=== PATIENT | male | born 1985 | race Caucasian/White ===

== ENCOUNTER 2024-09-02 20:45 | Inpatient (IN) | payer MEDICAID, SELFPAY ==
[2024-09-02] VITALS (17 sets, daily range): BP systolic 111–177; BP diastolic 69–100; PULSE 44–115; RESP 18; TEMP 37.1; O2SAT 94–100
--- NOTE | 2024-09-02 21:00 | DI.RAD_ITS ---
Exam(s) XR TIB/FIB LT EXAM: XR TIB/FIB LT CLINICAL HISTORY: soft tissue infection. TECHNIQUE: 2D digital imaging was performed. Two views. COMPARISON: No exams were available for comparison FINDINGS: BONES: No acute fracture is present. No bony destructive lesion is seen. Visualized portion of knee and ankle joints are unremarkable. SOFT TISSUE: Lower leg edema. No foreign body or gas collection. IMPRESSION: Soft tissue swelling. The preliminary [facility] report was reviewed. DATA REPOSITORY: RADIATION DOSE DELIVERED:
[2024-09-02] MEDS: cefTRIAXone 1 GM/50 ML BAG IVPB (21:54)
[2024-09-02 21:55] LABS: Abs Immature Grans 0.02 10^3/uL (0.0-0.06); HCT 35.8 % (40.0-50.0); HGB 11.8 g/dL (13.5-17.5); Immature Grans % 0.5 %; MCH 29.6 pg (27.0-33.0); MCHC 33.0 % (32.0-36.0); MCV 90 fL (80-95); MPV 9.2 fL (8.0-11.0); Platelet Count 245 10^3/uL (130-400); RBC 3.98 10^6/uL (4.36-5.78); RDW 12.7 % (11.8-14.1); RDW-SD 41.9 fL; WBC 4.15 10^3/uL (4.4-10.8)
[2024-09-02 21:59] LABS: ESR 16 mm/hr (0-15)
[2024-09-02 22:09] LABS: ALT 24 U/L (16-63); AST 21 U/L (15-37); Albumin 3.7 g/dL (3.4-5.0); Alkaline Phosphatase 91 U/L (46-116); Anion Gap 8.5 mmol/L (3-11); BUN 14 mg/dL (7-18); Bilirubin, Total 0.2 mg/dL (0.2-1.0); C-Reactive Protein 3.86 mg/dL (<or=0.5); CO2 30.5 mmol/L (21.0-32.0); Calcium 8.8 mg/dL (8.5-10.1); Chloride 105 mmol/L (98-107); Creatine Kinase 240 U/L (39-308); Estimated GFR 119.46 (mL/min/1.73m2); Glucose 91 mg/dL (74-106); Potassium 3.4 mmol/L (3.5-5.1); Sodium 144 mmol/L (136-145); Total Protein 7.3 g/dL (6.4-8.2)
[2024-09-02 22:12] LABS: INR 1.0 (0.9-1.1); Prothrombin Time 10.5 sec (9.1-11.1)
[2024-09-02] MEDS: ACETAMINOPHEN 1,000 MG/100 ML BAG 400 MG IVPB (22:25)
--- NOTE | 2024-09-02 22:36 | W.PM.HP.N ---
Date of service: 09/02/24 Time of Service: 22:36 Assessment and Plan Assessment and plan (1) Cellulitis of left leg: Status: Acute Assessment and plan: -likely secondary to bug bite ~ 5 days ago -subjective fever at home, but does not meet sepsis criteria -LLE xray without gas -given severity of cellulitis, was started on vanc and CTX, will continue History of Present Illness History of Present Illness Chief Complaint: LLE infection Narrative: 38-year-old male this emergency department with concerns for infection of his left lower extremity. 5 days ago patient was hiking had a bug bite on his left lower extremity, but 3 days ago noted at the beginning of blood was significant rapid redness and swelling of that area. Denies any fevers, headaches, dizziness, nausea vomiting or diarrhea. In the emergency department patient was noted to have minimal vital signs, physical exam concerning for left lower extremity cellulitis around the lateral malleolus and extending up the lateral aspect. Chest x-ray was without findings concerning for necrotizing fasciitis and CBC and CMP were unremarkable. On the emergency department the patient started vancomycin and ceftriaxone emergency room physician for fossils. However patient with severe cellulitis. Review of Systems All systems reviewed & are unremarkable except as noted in HPI and below PFSH All Active Problems (Updated 09/02/24 @ 23:08 by Kary Marie MD) Cellulitis of left leg (Acute) Social History Smoking/Tobacco Use Status: Former Tobacco Use Smoking risk assessment performed?: Yes Alcohol Intake: current Alcohol Intake frequency: a few times a month Alcohol type: beer Drug use: Never Substance use type: does not use Housing: other Do you feel safe in your relationship?: Yes Meds Allergies and Home Medications Allergies Allergy/AdvReac Type Severity Reaction Status Date / Time No Known Allergies Allergy Unverified 09/02/24 21:57 Home Medications ?Medication ?Instructions ?Recorded ?Confirmed ?Type ibuprofen 800 mg tablet 800 mg PO TID #30 tabs 08/06/12 09/02/24 Rx tramadol 50 mg tablet 50 mg PO TID #10 tabs 08/06/12 09/02/24 Rx alprazolam 2 mg tablet 2 mg PO DAILY 12/16/15 09/02/24 History methylphenidate HCl 36 mg 36 mg PO DAILY 12/16/15 09/02/24 History tablet,extended release 24 hr omeprazole 20 mg capsule,delayed 20 mg PO DAILY 12/16/15 09/02/24 History release tramadol 50 mg tablet 50 mg PO TID PRN #20 tabs 12/16/15 09/02/24 Rx ibuprofen 600 mg tablet 600 mg PO Q6H PRN Pain ##15 03/28/17 09/02/24 Rx trazodone 100 mg tablet 100 mg PO HS 03/28/17 09/02/24 History clonidine HCl 0.1 mg tablet 0.1 mg PO TID 09/02/24 09/02/24 History Results Labs 09/02/24 21:48 09/02/24 21:48 Labs: Laboratory Results - last 24 hr 09/02/24 21:48 WBC 4.15 L RBC 3.98 L Hgb 11.8 L Hct 35.8 L MCV 90 MCH 29.6 MCHC 33.0 RDW 12.7 Plt Count 245 MPV 9.2 Immature Gran % 0.5 Neutrophils % 63.8 Lymphocytes % 22.2 Monocytes % 12.0 Eosinophils % 1.0 Basophils % 0.5 Nucleated RBC % 0.0 Absolute Neutrophils 2.65 Absolute Lymphocytes 0.92 L Absolute Monocytes 0.50 Absolute Eosinophils 0.04 Absolute Basophils 0.02 ESR 16 H PT 10.5 INR 1.0 Sodium 144 Potassium 3.4 L Chloride 105 Carbon Dioxide 30.5 Anion Gap 8.5 BUN 14 Creatinine 0.7 Est GFR (CKD-EPI 2020) 119.46 Glucose 91 Calcium 8.8 Total Bilirubin 0.2 AST 21 ALT 24 Alkaline Phosphatase 91 Creatine Kinase 240 C-Reactive Protein 3.86 H Total Protein 7.3 Albumin 3.7 Last Vital Signs Temp 98.8 F 09/02/24 20:55 Pulse 115 H 09/02/24 20:55 Resp 18 09/02/24 20:55 BP 177/100 H 09/02/24 20:55 Pulse Ox 100 09/02/24 20:55 PAWSS Have you Been Recently Intoxicated or Drunk Within the Last 30 days?: No Have you Ever Experienced Previous Episodes of Alcohol Withdrawal?: No Have you ever Experienced Withdrawal Seizures?: No Have you ever Experienced Delirium Tremens(DT)s?: No Have you ever undergone Alcohol Rehabilitation Treatment (i.e, inpt ot outpatient treatment programs)?: No Have you ever Experienced Blackouts?: No Have you ever Combined Alcohol with other Downers within the last 90 days?: No Have you ever Combined Alcohol with any other Substance of Abuse during the last 90 days?: No Positive Blood Alcohol level on Presentation? [PCS.BAL]: No Evidence of Increased Autonomic Activity (i.e. HR>120, tremor, sweating, agitation, nausea)?: No Result: 0 Time Spent Time spent with Patient: >75 minutes Time was spent: preparing to see the patient(eg.review tests), obtaining and/or reviewing separately otained hiistory, ordering medications,tests, procedures, referring, communicating with other health childcare worker, indepentently interpreting results, counseling the patient and care coordination
--- NOTE | 2024-09-02 22:56 | DI.[facility]_ITS ---
PROCEDURE INFORMATION: Exam: XR Left Tibia and Fibula Exam date and time: 09/02/2024 9:39 PM Age: 38 years old Clinical indication: Other: Soft tissue infection TECHNIQUE: Imaging protocol: Radiologic exam of the left tibia and fibula. Views: 2 views. COMPARISON: No relevant prior studies available. FINDINGS: Bones/joints: Osseous alignment is normal. No acute fracture. No significant arthritic change. No findings concerning for osteomyelitis. Soft tissues: Diffuse soft tissue swelling of the left lower leg and ankle. No radiodense foreign body. IMPRESSION: No osseous abnormality. Diffuse soft tissue swelling Dictated and Authenticated by: Jack Chicas MD. Orderin Frank Goldberg MD
--- NOTE | 2024-09-02 23:03 | W.ED.GENAD ---
Discharge Plan Disposition Patient Disposition: Admit to [facility] Condition: Fair Discharge Details Clinical Impression: Cellulitis of left leg Primary Care Provider: None,None ED Provider: Kary Marie Home Meds and New Rx's Prescriptions: No Action tramadol 50 MG tablet 50 mg PO TID Qty: 10 0RF ibuprofen 800 MG tablet 800 mg PO TID Qty: 30 0RF omeprazole 20 MG capsule,delayed release(DR/EC) 20 mg PO DAILY alprazolam 2 MG tablet 2 mg PO DAILY methylphenidate HCl 36 MG tablet extended release 24hr 36 mg PO DAILY tramadol 50 MG tablet 50 mg PO TID PRNQty: 20 0RF trazodone 100 MG tablet 100 mg PO HS ibuprofen 600 MG tablet 600 mg PO Q6H PRN (Reason: Pain) Qty: 15 0RF clonidine HCl 0.1 mg tablet 0.1 mg PO TID HPI General Date/Time Provider Initiated Documentation: 09/02/24 20:55. Limitations to Documentation: no limitations. Information obtained by: patient. HPI Narrative: 38-year-old gentleman with past medical history of anxiety and sarcoidosis of lungs presents for evaluation of left leg swelling and pain. Patient reports that about 5 days he was walking through a field with high grass and afterwards he noticed that he had several bug bites on both of his legs. He reports that it was pretty itchy. He states that about 2 days later, he noted that he developed significant swelling of his left lower leg and redness. He has been observing this red area grow. He has been having subjective fevers. He has been having more significant swelling and pain in the left lower leg. He reports that it hurts to walk. He has not noted any drainage from the area. Related Data Home Medications ?Medication ?Instructions ?Recorded ?Confirmed ibuprofen 800 mg tablet 800 mg PO TID #30 tabs 08/06/12 09/02/24 tramadol 50 mg tablet 50 mg PO TID #10 tabs 08/06/12 09/02/24 alprazolam 2 mg tablet 2 mg PO DAILY 12/16/15 09/02/24 methylphenidate HCl 36 mg 36 mg PO DAILY 12/16/15 09/02/24 tablet,extended release 24 hr omeprazole 20 mg capsule,delayed 20 mg PO DAILY 12/16/15 09/02/24 release tramadol 50 mg tablet 50 mg PO TID PRN #20 tabs 12/16/15 09/02/24 ibuprofen 600 mg tablet 600 mg PO Q6H PRN Pain ##15 03/28/17 09/02/24 trazodone 100 mg tablet 100 mg PO HS 03/28/17 09/02/24 clonidine HCl 0.1 mg tablet 0.1 mg PO TID 09/02/24 09/02/24 Previous Rx's ?Medication ?Instructions ?Recorded ibuprofen 800 mg tablet 800 mg PO TID #30 tabs 08/06/12 tramadol 50 mg tablet 50 mg PO TID #10 tabs 08/06/12 tramadol 50 mg tablet 50 mg PO TID PRN #20 tabs 12/16/15 ibuprofen 600 mg tablet 600 mg PO Q6H PRN Pain ##15 03/28/17 Allergies Allergy/AdvReac Type Severity Reaction Status Date / Time No Known Allergies Allergy Unverified 09/02/24 21:57 General Stated Complaint: Cellulitis MARIBEL: 3 Exam Narrative Exam Narrative: Review of Systems: All systems reviewed & are unremarkable except as noted in HPI and below Well-developed, no acute distress afebrile NCAT RR no murmurR, Unlabored respiratory effort clear bilaterally Nondistended abdomen Bilateral lower extremities with slight edema, left more significant than right, there is a large area of erythema on the lateral left calf extending down to the ankle, there are multiple small bites noted on bilateral lower extremities, no erythema migrans appreciated, no urticarial lesions, no crepitus appreciated in the left lower extremity Course Vital Signs Vital signs: Vital Signs Temperature 37.1 C 09/02/24 20:49 Pulse 115 H 09/02/24 20:49 Respiratory Rate 18 09/02/24 20:49 Blood Pressure 177/100 H 09/02/24 20:49 Pulse Oximetry 97 09/02/24 20:49 Temperature 37.1 C 09/02/24 20:55 Temperature Source Temporal Artery Scan 09/02/24 20:55 Pulse 115 H 09/02/24 20:55 Respiratory Rate 18 09/02/24 20:55 Blood Pressure 177/100 H 09/02/24 20:55 Blood Pressure Position Sitting 09/02/24 20:55 Pulse Oximetry 100 09/02/24 20:55 Oxygen Delivery Method Room Air 09/02/24 20:55 Pain Level 10 09/02/24 20:49 Lab/Test Results Lab/Test Results: Laboratory Tests Range/Units 09/02/24 21:48 WBC (4.4-10.8) 10^3/uL 4.15 L RBC (4.36-5.78) 10^6/uL 3.98 L Hgb (13.5-17.5) g/dL 11.8 L Hct (40.0-50.0) % 35.8 L MCV (80-95) fL 90 MCH (27.0-33.0) pg 29.6 MCHC (32.0-36.0) % 33.0 RDW (11.8-14.1) % 12.7 Plt Count (130-400) 10^3/uL 245 MPV (8.0-11.0) fL 9.2 Immature Gran % % 0.5 Neutrophils % % 63.8 Lymphocytes % % 22.2 Monocytes % % 12.0 Eosinophils % % 1.0 Basophils % % 0.5 Nucleated RBC % (0.0-0.3) % 0.0 Absolute Neutrophils (1.2-6.7) 10^3/uL 2.65 Absolute Lymphocytes (1.2-3.4) 10^3/uL 0.92 L Absolute Monocytes (0.1-0.8) 10^3/uL 0.50 Absolute Eosinophils (0.0-0.7) 10^3/uL 0.04 Absolute Basophils (0.0-0.2) 10^3/uL 0.02 ESR (0-15) mm/hr 16 H PT (9.1-11.1) sec 10.5 INR (0.9-1.1) 1.0 Sodium (136-145) mmol/L 144 Potassium (3.5-5.1) mmol/L 3.4 L Chloride (98-107) mmol/L 105 Carbon Dioxide (21.0-32.0) mmol/L 30.5 Anion Gap (3-11) mmol/L 8.5 BUN (7-18) mg/dL 14 Creatinine (0.70-1.30) mg/dL 0.7 Est GFR (CKD-EPI 2020) (mL/min/1.73m2) 119.46 Glucose (74-106) mg/dL 91 Calcium (8.5-10.1) mg/dL 8.8 Total Bilirubin (0.2-1.0) mg/dL 0.2 AST (15-37) U/L 21 ALT (16-63) U/L 24 Alkaline Phosphatase (46-116) U/L 91 Creatine Kinase (39-308) U/L 240 C-Reactive Protein (<or=0.5) mg/dL 3.86 H Total Protein (6.4-8.2) g/dL 7.3 Albumin (3.4-5.0) g/dL 3.7 Medical Decision Making Emergent evaluation of left lower extremity swelling and redness. Initial differential includes allergic reaction, localized infection, DVT. Patient reports a history of sarcoidosis and remote steroid use, but denies any current steroid use or any other an immune modulators for this diagnosis, he also does not have a known diagnosis of diabetes. Although the patient does not have other risk factors for DVT, he does have significant swelling noted in the left lower leg. Unfortunately at this time an ultrasound is not able to be obtained, but can be obtained as an inpatient. He denies any history of IV drug use. He has not tried any medication for the leg prior to arrival. He reports subjective fever at home and is noted to be tachycardic on arrival. Blood work was obtained and some leukopenia is noted as long as well as mild anemia. ESR and CRP are slightly elevated. Potassium 3.4. CPK is not elevated. An x-ray of the left lower extremity was obtained and I do not appreciate any foreign body or gas in the tissue, subcutaneous inflammatory changes noted. Given the severity of his cellulitis, vancomycin and Rocephin were given. Patient will be admitted to the hospital for further management and treatment. [facility] All Active Problems (Updated 09/02/24 @ 23:08 by Kary Marie MD) Cellulitis of left leg (Acute) Social History Smoking/Tobacco Use Status: Former Tobacco Use Smoking risk assessment performed?: Yes Alcohol Intake: current Alcohol Intake frequency: a few times a month Alcohol type: beer Drug use: Never Substance use type: does not use Do you feel safe in your relationship?: Yes PAWSS Have you Been Recently Intoxicated or Drunk Within the Last 30 days?: No Have you Ever Experienced Previous Episodes of Alcohol Withdrawal?: No Have you ever Experienced Withdrawal Seizures?: No Have you ever Experienced Delirium Tremens(DT)s?: No Have you ever undergone Alcohol Rehabilitation Treatment (i.e, inpt ot outpatient treatment programs)?: No Have you ever Experienced Blackouts?: No Have you ever Combined Alcohol with other Downers within the last 90 days?: No Have you ever Combined Alcohol with any other Substance of Abuse during the last 90 days?: No Positive Blood Alcohol level on Presentation? [PCS.BAL]: No Evidence of Increased Autonomic Activity (i.e. HR>120, tremor, sweating, agitation, nausea)?: No Result: 0
[2024-09-02] MEDS: VANCOMYCIN 1,500 MG in Normal Saline 250 ML 166.6666 MG IVPB (23:04)
[2024-09-02] MEDS: MORPHine 4 MG/ML SYR IM (23:05)
[2024-09-02] MEDS: ALPRAZolam 0.25 MG TAB 0.5 MG PO (23:40)
--- NOTE | 2024-09-02 23:56 | NUR.NOTE ---
Patient HR goes into the 40s when he is sleeping. Admitting Provider made aware of same
[2024-09-03 00:52] VITALS: BP 155/98; PULSE 42; RESP 18; TEMP 36.5; O2SAT 100
[2024-09-03 03:41] VITALS: BP 110/67; PULSE 55; RESP 16; TEMP 36; O2SAT 97
[2024-09-03] MEDS: HYDROmorphone 2 MG/ML SYR 1 MG IVP ×3 (06:05→13:48)
[2024-09-03] MEDS: Normal Saline Flush 10 ML SYR IVP ×3 (06:06→10:02)
[2024-09-03 06:53] LABS: HCT 34.2 % (40.0-50.0); HGB 11.5 g/dL (13.5-17.5); MCH 30.0 pg (27.0-33.0); MCHC 33.6 % (32.0-36.0); MCV 89 fL (80-95); MPV 9.2 fL (8.0-11.0); Platelet Count 215 10^3/uL (130-400); RBC 3.83 10^6/uL (4.36-5.78); RDW 12.7 % (11.8-14.1); RDW-SD 41.4 fL; WBC 3.32 10^3/uL (4.4-10.8)
[2024-09-03 07:08] LABS: Anion Gap 2.9 mmol/L (3-11); BUN 11 mg/dL (7-18); CO2 33.1 mmol/L (21.0-32.0); Calcium 8.5 mg/dL (8.5-10.1); Chloride 106 mmol/L (98-107); Estimated GFR 125.15 (mL/min/1.73m2); Glucose 92 mg/dL (74-106); Magnesium 2.0 mg/dL (1.8-2.4); Potassium 3.4 mmol/L (3.5-5.1); Sodium 142 mmol/L (136-145)
[2024-09-03] MEDS: ALPRAZolam 0.5 MG TAB 2 MG PO (07:38)
[2024-09-03] MEDS: cloNIDine 0.1 MG TAB PO ×2 (07:38→13:50)
[2024-09-03] MEDS: Enoxaparin 40 MG/0.4 ML SYR SC (07:39)
[2024-09-03 07:43] VITALS: BP 138/85; PULSE 55; RESP 16; TEMP 36.5; O2SAT 98
[2024-09-03] MEDS: Acetaminophen 325 MG TAB 650 MG PO ×2 (09:30→13:49)
--- NOTE | 2024-09-03 10:51 | W.PM.DS.N ---
Date of service: 09/03/24 Time of Service: 10:52 DS: Diagnosis Discharge Diagnosis (1) Cellulitis of left leg: Status: Acute Discharge Plan Disposition Patient Disposition: Home Condition: Stable Discharge Details Reason For Visit: Foot & Leg Injuries Admit Date/Time: 09/02/24 22:35 Admit Provider: Arben Lee Attending Provider: Arben Lee Primary Care Provider: None,None Hospital Course Hospital Course: 38 yo M with history of anxiety and ADHD who presented with progressive pain and swelling in his left lower leg that had started as a bug bite that got infected. There was no purulence, abscess, or drainage. His WBC were mildly low at 4.15 with a normal differntial, then 3.32. His CRP was high at 3.86. He was never febrile. XR just showed soft tissue infection. He was admitted overnight and treated with ceftriaxone and vancomycin. He requested discharge to be able to take care of his two kids. His swelling was improving. He was eating and drinking normally. Given the lack of purulence, no severe neutropenia or other immune suppression, negative MRSA nasal carrier screen, and lack of other clear risk factors he was discharged after his second dose of ceftriaxone 1g IV with cefadroxil orally. He understands he should return to the hospital if his infection is worsening. He was given #10 50mg tramadol for pain along with ibuprofen Follow up 1 week with PCP after labs Recommendations for Follow Up Recommended tests to be ordered by follow up provider: CRP, CBC w/diff to follow neutropenia 5 days Home Meds and New Rx's Prescriptions: New cefadroxil 1 gram tablet 1,000 mg PO DAILY 5 Days Qty: 5 0RF Rx Instructions: start 09/04 Continued ibuprofen 800 MG tablet 800 mg PO TID Qty: 30 0RF omeprazole 20 MG capsule,delayed release(DR/EC) 20 mg PO DAILY alprazolam 2 MG tablet 2 mg PO DAILY methylphenidate HCl 36 MG tablet extended release 24hr 36 mg PO DAILY trazodone 100 MG tablet 100 mg PO HS ibuprofen 600 MG tablet 600 mg PO Q6H PRN (Reason: Pain) Qty: 15 0RF clonidine HCl 0.1 mg tablet 0.1 mg PO TID Changed tramadol 50 MG tablet 50 mg PO TID PRN (Reason: Analgesia) Qty: 10 0RF Discontinued tramadol 50 MG tablet 50 mg PO TID PRNQty: 20 0RF Discharge Instructions Instructions: Cellulitis (skin infection) in adults - Discharge instructions Additional Instructions: finish the antibiotics, starting tomorrow return to the hospital if the infection doesn't continue to improve Elevate your leg as much as you can Activity:: Activity as Tolerated Equipment/Supplies:: No Equipment Needed Diet:: As Tolerated Discharge Orders Discharge Orders: Discharge Order (Routine); Ordered 09/03/24 Ordered By: Rm Richter DS: Summary Time Spent with Patient providing and/or coordinating discharge services: Greater than 30 minutes Status at Discharge Functional status at discharge: independent ambulation Overall status at discharge: patient is progressing back to baseline Mental Status: mental status grossly normal Speech and Movement: speech and movement normal Mood: congruent mood Affect: normal affect Exam Narrative Exam Narrative: GEN: Alert and oriented, NAD Lungs: CTAB, nl effort CV: RRR, no murmur Ext: 1+ pitting edema left ankle to foot, none right. Some pain with flexion/extension left ankle but no calf tenderness skin: Well circumscribed dark red tender patch left lateral ankle, no head or drainage or blistering or fluctuance. Psych Mental Status: mental status grossly normal Speech and Movement: speech and movement normal Mood: congruent mood Affect: normal affect DS: Data Vitals/I&O Vitals and I&O: Vital Signs Temperature 36.5 C 09/03/24 07:43 Temperature Source Temporal Artery Scan 09/03/24 07:43 Pulse 55 L 09/03/24 07:43 Pulse Rhythm Irregular 09/03/24 00:35 Respiratory Rate 16 09/03/24 07:43 Respiratory Effort Normal 09/03/24 00:35 Respiratory Depth Normal 09/03/24 00:35 Respiratory Pattern Normal 09/03/24 00:35 Blood Pressure 138/85 09/03/24 07:43 Blood Pressure Mean 102 09/03/24 07:43 Blood Pressure Position Sitting 09/02/24 20:55 Pulse Oximetry 98 09/03/24 07:43 Oxygen Delivery Method Room Air 09/03/24 07:43 Oxygen Flow Rate 0 09/03/24 07:43 Pain Level 10 09/03/24 09:29 Intake & Output 09/02/24 09/02/24 09/03/24 11:59 23:59 11:59 Intake Total 50 / 50 360 / 360 Balance 50 / 50 360 / 360 Weight 89.358 kg 89.358 kg Intake: IV 360 / 360 Data Completed and Pending Labs on day of discharge: Labs from last 24 hours 09/03/24 09/03/24 09/02/24 20:00 05:59 21:48 WBC 3.32 L 4.15 L RBC 3.83 L 3.98 L Hgb 11.5 L 11.8 L Hct 34.2 L 35.8 L MCV 89 90 MCH 30.0 29.6 MCHC 33.6 33.0 RDW 12.7 12.7 Plt Count 215 245 MPV 9.2 9.2 Immature Gran % 0.5 Neutrophils % 63.8 Lymphocytes % 22.2 Monocytes % 12.0 Eosinophils % 1.0 Basophils % 0.5 Nucleated RBC % 0.0 Absolute Neutrophils 2.65 Absolute Lymphocytes 0.92 L Absolute Monocytes 0.50 Absolute Eosinophils 0.04 Absolute Basophils 0.02 ESR 16 H PT 10.5 INR 1.0 Sodium 142 144 Potassium 3.4 L 3.4 L Chloride 106 105 Carbon Dioxide 33.1 H 30.5 Anion Gap 2.9 L 8.5 BUN 11 14 Creatinine 0.6 L 0.7 Est GFR (CKD-EPI 2020) 125.15 119.46 Glucose 92 91 Calcium 8.5 8.8 Magnesium 2.0 Total Bilirubin 0.2 AST 21 ALT 24 Alkaline Phosphatase 91 Creatine Kinase 240 C-Reactive Protein 3.86 H Total Protein 7.3 Albumin 3.7 Random Vancomycin Pending 09/02/24 23:58 Blood Blood Culture - Pending 09/02/24 23:50 Blood Blood Culture - Pending Preliminary micro results at discharge 09/02/24 23:58 Blood Blood Culture - Pending 09/02/24 23:50 Blood Blood Culture - Pending ON LICENSE OF [facility] All Active Problems (Updated 09/02/24 @ 23:08 by Kary Marie MD) Cellulitis of left leg (Acute) Social History Smoking/Tobacco Use Status: Former Tobacco Use Smoking risk assessment performed?: Yes Alcohol Intake: current Alcohol Intake frequency: a few times a month Alcohol type: beer Drug use: Never Substance use type: does not use Housing: other Do you feel safe in your relationship?: Yes Time Spent with Patient Time Spent with Patient: <45 minutes Time was spent: preparing to see the patient(eg.review tests), obtaining and/or reviewing separately otained hiistory, ordering medications,tests, procedures, referring, communicating with other health healthcare management, indepentently interpreting results, counseling the patient and care coordination
[2024-09-03] MEDS: Potassium Chloride 20 MEQ TABCR 40 MEQ PO (11:14)
[2024-09-03] MEDS: cefTRIAXone 1 GM/50 ML BAG IVPB (11:14)
[2024-09-03] MEDS: VANCOMYCIN/WATER (PEG) 1.5 GM/300 ML BAG IV (11:56)
[2024-09-03 12:01] VITALS: BP 106/68; PULSE 68; RESP 17; TEMP 36.7; O2SAT 98
[2024-09-03 14:28] LABS: MRSA PCR Negative (Negative)
[2024-09-03 15:05] VITALS: BP 118/78; PULSE 59; RESP 16; TEMP 36.2; O2SAT 99
--- NOTE | 2024-09-03 18:50 | PDOC.CMDIS ---
Date of service: 09/03/24 Time of Service: 18:50 LACE Index Scoring Tool Questions: Length of Stay (in days): 1 Was the patient admitted via the E.D.?: Yes E.D. Visits: 1 Answers: Total Score: 5 Risk of Readmission: Low Risk Care Management Discharge Plan Reason for Hospitalization: Cellulites Discharge Plan: Cliff is discharged home with a T-Doc follow up on 09/10/24, as scheduled. He lives less than a mile away and prefers to walk, rather than have RCT bring him home. No new services are ordered. Patient/Family Education Needs: Review discharge instructions, limitations and plan to follow up in the community. Discuss ask me three.
--- NOTE | 2024-09-03 18:55 | PDOC.CMIN ---
Date of service: 09/03/24 Time of Service: 11:00 Care Management Initial Assmt Initial Assessment Reason for Hospitalization: Cellulites Functional Status/Living Situation Patient Presentation: Cliff was lying in bed and was difficult to wake up. He was forthcoming with information and engages in conversation once awake. Cliff lives at [facility] with his 2 sons. 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 CM provided pt with information about [facility], he declines a referral at this time, but did accept a brochure. CM will continue to follow. Town of Residence: [facility] Resides with: Child Employment Status: Unemployed Instrumental Activities of Daily Living (ADLs): Independent Medications Medication Management: No Issues/Barriers identified Advance Directives Advance Directives: Do you have an Advance Directive: N 08/06/12, 12:24 AD On File at [facility]: N 05/30/12, 13:38 Date Asked 09/02/24 09/02/24, 20:46 AD Date Reviewed COLST On File at [facility] COLST Date Scanned Portal Pt does not currently have a portal and education provided: Yes Insurance Coverage/Financial Issues Insurance: Medicaid of [place] - [id number] Care Team Visit Care Team Role Provider Type Rm Richter MD [facility] STAFF PHYSICIAN None None Primary Care Provider NON-[facility] STAFF PHYSICIAN Kary Marie MD Emergency Provider [facility] STAFF PHYSICIAN Arben Lee MD Admit Provider [facility] STAFF PHYSICIAN Attending Provider Discharge Potential Discharge Needs: PCP F/U Appt (T-doc follow up) Anticipated Barriers to Discharge: None Identified Patient/Family Education Needs: Review discharge instructions, discuss Ask Me Three Transportation: Other (walk) Plan: Cliff is being discharged home with a T-Doc follow up on 09/10/24, as scheduled. He lives less than a mile away and prefers to walk, rather than have RCT bring him home. No new services are indicated at this time. Community resources were provided. Social Determinants of Health Screening Will the Patient Participate in the Screening?: Unable to obtain PFSH All Active Problems (Updated 09/02/24 @ 23:08 by Kary Marie MD) Cellulitis of left leg (Acute) Social History Smoking/Tobacco Use Status: Former Tobacco Use Smoking risk assessment performed?: Yes Alcohol Intake: current Alcohol Intake frequency: a few times a month Alcohol type: beer Drug use: Never Substance use type: does not use Housing: other Do you feel safe in your relationship?: Yes
== END 2024-09-03 16:20 | disposition home or self-care (01) | DRG 603 ==
LOC: ER 23:35 → MS 09-03 00:13
PROVIDERS: Admitting Provider Family Medicine; Emergency Provider Emergency Medicine; Responsible Provider Family Medicine; Visit Provider Family Medicine
DX: L03.116 Cellulitis of left lower limb (principal); S80.862A Insect bite (nonvenomous), left lower leg, initial encounter; F90.9 Attention-deficit hyperactivity disorder, unspecified type; Z79.899 Other long term (current) drug therapy
CPT/HCPCS: 00123; 36415; 36416; 80048; 80053; 82550; 82962; 85027; 85652; 87040; 87641; 96365; 96366; 96367; 96368; 96375; 99285; J1650; 73590; 80202; 83735; 85025; 85610; 86140; 99223; 99239; J0131; J0696; J1171; J2270; J3373

== ENCOUNTER 2024-10-14 01:02 | Outpatient (CLI) | payer MEDICAID, SELFPAY ==
--- NOTE | 2024-10-14 | DI.US_ITS ---
Exam(s) US EXTREMITY VENOUS BI EXAM: US EXTREMITY VENOUS BI CLINICAL HISTORY: SWELLING OF BOTH LOWER EXTREMITIES, M79.89. TECHNIQUE: Bilateral lower extremity venous ultrasound performed using grayscale, color-flow, and spectral Doppler analysis. COMPARISON: No exams were available for comparison FINDINGS: The bilateral common femoral, femoral and popliteal veins demonstrate normal compressibility, augmentation, and color Doppler. The posterior tibial and peroneal veins are patent. IMPRESSION: Right: Negative for DVT Left: Negative for DVT DATA REPOSITORY:
== END 2024-10-14 01:22 ==
PROVIDERS: PCP Family Medicine; Visit Provider Family Medicine
DX: M79.89 Other specified soft tissue disorders (principal)
CPT/HCPCS: 93970

== ENCOUNTER 2024-10-31 15:31 | Outpatient (REF) | payer MEDICAID, SELFPAY ==
[2024-10-31 19:11] LABS: Abs Immature Grans 0.02 10^3/uL (0.0-0.06); HCT 40.4 % (40.0-50.0); HGB 13.9 g/dL (13.5-17.5); Immature Grans % 0.2 %; MCH 30.4 pg (27.0-33.0); MCHC 34.4 % (32.0-36.0); MCV 88 fL (80-95); MPV 10.1 fL (8.0-11.0); Platelet Count 167 10^3/uL (130-400); RBC 4.57 10^6/uL (4.36-5.78); RDW 12.9 % (11.8-14.1); RDW-SD 41.4 fL; WBC 11.11 10^3/uL (4.4-10.8)
[2024-10-31 19:33] LABS: ALT 22 U/L (16-63); AST 17 U/L (15-37); Albumin 3.7 g/dL (3.4-5.0); Alkaline Phosphatase 100 U/L (46-116); Anion Gap 9.2 mmol/L (3-11); BUN 19 mg/dL (7-18); Bilirubin, Total 0.4 mg/dL (0.2-1.0); CO2 28.8 mmol/L (21.0-32.0); Calcium 8.7 mg/dL (8.5-10.1); Chloride 106 mmol/L (98-107); Estimated GFR 110.73 (mL/min/1.73m2); Glucose 89 mg/dL (74-106); Potassium 3.6 mmol/L (3.5-5.1); Sodium 144 mmol/L (136-145); Total Protein 6.6 g/dL (6.4-8.2)
[2024-10-31 19:44] LABS: GGT 63 U/L (15-85); Lipase 24 U/L (<78)
[2024-11-03 10:35] LABS: Hepatitis A Antibody IgM Negative (Negative); Hepatitis C Ab w Rflx HCV PCR Reactive (Negative)
== END 2024-10-31 15:32 | disposition home or self-care (01) ==
LOC: NCHCN 15:31
PROVIDERS: PCP Family Medicine; Visit Provider Family Medicine
DX: R14.0 Abdominal distension (gaseous) (principal)
CPT/HCPCS: 80053; 83690; 86704; 86709; 86803; 87340; 87522; 82977; 85025

== ENCOUNTER 2024-11-11 11:02 | Outpatient (CLI) | payer MEDICAID, SELFPAY ==
--- NOTE | 2024-11-11 | DI.US_ITS ---
Exam(s) US ABDOMEN EXAM: US ABDOMEN CLINICAL HISTORY: ABD DISTENSION R14.0 NEW DISTENSION RUQ SORENESS, ATTN LIVER TECHNIQUE: Ultrasound of complete upper abdomen performed using standard protocol. COMPARISON: None FINDINGS: There is no ascites evident. LIVER: There are no hepatic lesions evident nor obvious dilatation of intrahepatic ducts. GALLBLADDER/BILIARY: There are multiple gallstones noted as well as sludge in the gallbladder lumen. The gallbladder wall does not appear edematous and there is no pericholecystic fluid. No gallbladder distension. The common hepatic duct isnot dilated, measuring 3-4mm at the level of stefania hepatis. PANCREAS: There is no evidence of pancreatic mass nor dilatation of the pancreatic duct. SPLEEN: Spleen size is upper normal measuring 12.5 cm. No intrasplenic lesions evident KIDNEYS:Kidneys exhibit normal size with no evidence of solid mass, calculus, nor hydronephrosis. No cortical cysts evident. ABDOMINAL AORTA: There is no evidence of abdominal aortic aneurysm. IVC: Normal diameter where visualized. IMPRESSION: 1. Cholelithiasis. There are gallstones and sludge in the gallbladder lumen. The gallbladder does not appear edematous and the patient was not tender over this area during scanning today. The CBD is not dilated. 2. No significant focal findings in the liver. No ascites. 3. Spleen size upper normal. DATA REPOSITORY:
--- NOTE | 2024-11-11 13:39 | DI.RAD_ITS ---
Exam(s) XR KNEE RT 3V AP,LAT,[place] EXAM: XR KNEE RT 3V AP,LAT,[place] CLINICAL HISTORY: RT KNEE PAIN M25.561 SCUTE CHRONIC PAINW/ WORSENING INSTABILITY. TECHNIQUE: 2D digital imaging was performed. Three views. COMPARISON: No exams were available for comparison FINDINGS: BONES: No acute fracture is present. No bony destructive lesion is seen. JOINTS: The knee is normally aligned. The joint spaces are maintained. No significant degenerative changes. No joint effusion is seen. SOFT TISSUE: Normal. IMPRESSION: Unremarkable radiographs of the right knee. DATA REPOSITORY: RADIATION DOSE DELIVERED:
== END 2024-11-11 11:22 ==
LOC: DI 11:03
PROVIDERS: PCP Family Medicine; Visit Provider Family Medicine
DX: M25.561 Pain in right knee (principal)
CPT/HCPCS: 73562; 76700

== ENCOUNTER 2024-12-12 13:34 | Outpatient (REF) | payer MEDICAID, SELFPAY ==
[2024-12-12 17:28] LABS: HCT 37.1 % (40.0-50.0); HGB 12.8 g/dL (13.5-17.5); MCH 30.3 pg (27.0-33.0); MCHC 34.5 % (32.0-36.0); MCV 88 fL (80-95); MPV 10.1 fL (8.0-11.0); Platelet Count 248 10^3/uL (130-400); RBC 4.22 10^6/uL (4.36-5.78); RDW 12.6 % (11.8-14.1); RDW-SD 40.6 fL; WBC 6.79 10^3/uL (4.4-10.8)
[2024-12-12 17:41] LABS: Anion Gap 8.0 mmol/L (3-11); BUN 17 mg/dL (7-18); CO2 28.0 mmol/L (21.0-32.0); Calcium 8.7 mg/dL (8.5-10.1); Calculated LDL 124 mg/dL (<100); Chloride 105 mmol/L (98-107); Cholesterol 199 mg/dL (<200); Estimated GFR 86.49 (mL/min/1.73m2); Glucose 91 mg/dL (74-106); HDL Cholesterol 40 mg/dL (>or=40); Potassium 4.2 mmol/L (3.5-5.1); Sodium 141 mmol/L (136-145); Triglyceride 176 mg/dL (<150)
[2024-12-12 17:57] LABS: Hemoglobin A1C 5.1 % (<5.7)
== END 2024-12-12 13:35 | disposition home or self-care (01) ==
LOC: NCHCN 13:34
PROVIDERS: PCP Family Medicine; Visit Provider Family Medicine
DX: Z01.818 Encounter for other preprocedural examination (principal); Z13.220 Encounter for screening for lipoid disorders; Z13.1 Encounter for screening for diabetes mellitus
CPT/HCPCS: 80048; 80061; 85027; 83036

== ENCOUNTER 2024-12-23 07:29 | Day surgery (SDC) | payer MEDICAID, SELFPAY ==
--- NOTE | 2024-12-22 13:56 | W.PREOPHP ---
Assessment and Plan Assessment and plan (1) Biliary colic: Status: Acute Assessment and plan: We reviewed the plan for elective cholecystectomy today, and the nature of the procedure as well as the risks and benefits. I think Brad has a very good understanding of all of this. He is able to provide informed consent, he has no other questions relative to our last office visit. We can proceed with cholecystectomy as planned History of Present Illness History of Present Illness Chief Complaint: Biliary colic Narrative: Jorge is 39 years old, has been experiencing several months of intermittent stabbing right upper quadrant pain, and has a CAT scan that demonstrates confirms the presence of cholelithiasis thereby supporting biliary colic as a source of his symptoms. I recommended elective cholecystic to reduce the risk of acute cholecystitis PFSH All Active Problems Biliary colic (Acute) Cellulitis of left leg (Acute) Medical History Ex-smoker ADHD Chronic anxiety Chronic insomnia GERD (gastroesophageal reflux disease) Chronic pain PTSD (post-traumatic stress disorder) Sarcoidosis Social History Smoking/Tobacco Use Status: Former Tobacco Use Quit Date: 12/03/20 Smoking risk assessment performed?: Yes Alcohol Intake: current Alcohol Intake frequency: a few times a month Alcohol type: beer Drug use: Never Substance use type: does not use Housing: apartment Do you feel safe at home: Yes Do you feel safe in your relationship?: Yes Meds Allergies and Home Medications Allergies Allergy/AdvReac Type Severity Reaction Status Date / Time amoxicillin Allergy Intermediate Hives Verified 12/22/24 10:18 Home Medications ?Medication ?Instructions ?Recorded ?Confirmed ?Type omeprazole 20 mg capsule,delayed 20 mg PO DAILY 12/16/15 12/22/24 History release ibuprofen 600 mg tablet 600 mg PO Q6H PRN Pain #15 tabs 03/28/17 12/22/24 Rx trazodone 100 mg tablet 100 mg PO HS 03/28/17 12/22/24 History clonidine HCl 0.1 mg tablet 0.1 mg PO TID 09/02/24 12/22/24 History alprazolam 2 mg tablet 2 mg PO TID 11/24/24 12/22/24 History furosemide 20 mg tablet (Lasix) 20 mg PO DAILY 11/24/24 12/22/24 History methylphenidate HCl 20 mg tablet 20 mg PO TID 11/24/24 12/22/24 History buprenorphine 7.5 mcg/hour weekly 1 patch transdermal .weekly 12/22/24 12/22/24 History transdermal patch (Dillon)
--- NOTE | 2024-12-22 13:58 | PDOC.DSDIS_ITS ---
Date of service: 12/23/24 Discharge Plan Disposition Patient Disposition: Home Condition: Good Discharge Details Reason For Visit: Laparoscopic cholecystectomy Attending Provider: Rickie Sanford Primary Care Provider: Nitin Greenberg Home Meds and New Rx's Prescriptions: New tramadol 50 mg tablet 50 mg PO Q8H PRNQty: 9 0RF Rx Instructions: Take 1 tablet by mouth up to every 8 hours if needed for severe pain Continued methylphenidate HCl 20 mg tablet 20 mg PO TID furosemide [Lasix] 20 mg tablet 20 mg PO DAILY Patient Comments: Pt. states he takes this for leg swelling and often gets cellulitis so this is taken PRN omeprazole 20 MG capsule,delayed release(DR/EC) 20 mg PO DAILY alprazolam 2 mg tablet 2 mg PO TID trazodone 100 MG tablet 100 mg PO HS ibuprofen 600 MG tablet 600 mg PO Q6H PRN (Reason: Pain) Qty: 15 0RF clonidine HCl 0.1 mg tablet 0.1 mg PO TID buprenorphine [Butrans] 7.5 mcg/hour patch weekly 1 patch transdermal .weekly Patient Comments: APPLY ONE PATCH TO SKIN ONCE WEEKLY Discharge Instructions Instructions: Cholecystectomy, Laparoscopic Surgery Additional Instructions: Cliff, was great seeing you today, and hope you make a quick and uneventful recovery from the operation and she transition home. Things went very smoothly. Your gallbladder was quite inflamed, and I am certain that this was causing quite a bit of discomfort for you. As you will see as you wake up, there are total of 4 incisions. The largest is at your bellybutton, and the other 3 are scattered along your mid abdomen. Beginning tomorrow, you can remove all of the bandages. You should wash the incisions with warm soapy water and pat them dry. You are welcome to reapply Band-Aids if that is most comfortable for you. Expect to get some bruising over the incisions, that is extremely common and nothing to worry about. Ice packs over the incisions will help with swelling after surgery, as well as the bruising. Over the next few days, I recommend that you use Tylenol and ibuprofen [id number]. I suggest alternating these every 6 hours for the first 2 days. I have also added a prescription for some tramadol if you needed for more severe pain. The pain should get a little less intense each day. Some patients will also experience some diarrhea after having her gallbladder removed. I do not anticipate that happening, but if it does, avoiding greasy foods, and adding fiber and antidiarrheal medications is very reasonable. If you need anything at all, please do not hesitate to call the office at any time at [phone]. If it is after business hours, you can call the hospital and have them page the surgeon on-call. If for any reason you are not able to get in touch, please proceed straight to the emergency department. Again, I do not anticipate any of that, but there are certainly multiple ways to help if something does not seem right. 1. Resume all of your regular medications. 2. Use ice packs over the incisions to help with postoperative pain and swelling. 3. Alternate [id number] Tylenol and ibuprofen every 6 hours for the first 2 days. Then use them as needed. Use the prescription for tramadol if needed for more severe pain. 4. Leave bandages in place for 24 hours, then remove. 5. Shower with warm soapy water. Pat dry. You are welcome to replace the Band- Aids if you would like for comfort 6. No soaking or tub baths until I see you in the office. 7. No heavy lifting until I see you in the office. 8. Call the office (or go directly to the emergency room after hours) if you notice any of the following: Develop chills (warm to touch), or if you have a thermometer and your temperature is above 101 Difficulty breathing or difficultly swallowing Persistent vomiting Any bleeding ? exceeding one tablespoon 9. Call your physician if the site where your intravenous was started becomes red, swollen, painful, and warm to touch. Referrals: Rickie Sanford MD [ [facility] STAFF PHYSICIAN, Surgery] - 01/05/25 10:00 am Activity:: No heavy lifting Remove Dressings/Wound Care:: 24 hours Shower/Bathe:: 24 hours Diet:: As Tolerated Discharge Orders Discharge Orders: Discharge Order (Routine); Ordered 12/22/24 Ordered By: Rickie Sanford DS: Diagnosis Discharge Diagnosis (1) Biliary colic: Status: Acute Asessment and Plan: Outpatient postoperative follow-up
--- NOTE | 2024-12-22 13:59 | W.PM.OP ---
Operative Note Operative Note PRE-OP DIAGNOSIS: Biliary colic POST-OP DIAGNOSIS: other (Chronic cholecystitis) PROCEDURE: Laparoscopic cholecystectomy SURGEON: Rickie Sanford PRE PRESS OPERATOR: Patience De La Garza ANESTHESIA TYPE: Local By Surgeon and General:No Airway Refer to Anesthesia Record ESTIMATED BLOOD LOSS: 100 PATHOLOGY: other (Gallbladder) COMPLICATIONS: None Patient was transported to: PACU Patient's condition: stable Indications: Cliff is a 39-year-old male with symptomatic biliary colic from cholelithiasis. Findings: Chronic cholecystitis Procedure Description: After satisfactory induction of general anesthesia, I prepped and draped the abdomen in usual fashion. Next, I began with a periumbilical incision. I dissected down to the fascia. Next, using a 5 mm optical viewing port, establish pneumoperitoneum under the direct vision of the scope.I then insufflated the peritoneal cavity. There was no evidence of injury created upon entry. I then placed the patient in some reverse Trendelenburg and left side down positioning. Then, with the assistance of the laparoscope, I placed another 5 mm port in the right anterior axillary line. The camera was moved to this position, and the umbilical port was upsized to 12 mm. Another 5 mm port was then placed in the mid epigastrium, and another in the right mid abdomen. There were dense adhesions of the greater omentum to the dome of the gallbladder. Using combination of blunt dissection, electrocautery, and the Lige sure, these were cleared from the dome. I then grasped the gallbladder fundus and elevated cephalad. I began by dissecting the gallbladder infundibulum. I worked in a lateral to medial fashion with the assistance of indocyanine green. The tissue of the cystic neck and cystic duct were quite thick, and this required tedious dissection. Great care was taken to stay well away from the common bile duct. Once I skeletonized the cystic duct and cystic artery, with a satisfactory critical view of safety, I doubly clipped and divided them. I then used electrocautery to dissect the gallbladder off the gallbladder fossa. The posterior wall of the gallbladder was also quite thickened, and there was some spillage of what appeared to be hydrops. This was easily controlled with the suction stationary engineer supervisor. Once the gallbladder was completely dissected free of the fossa, I passed the gallbladder into an Endo Catch bag and removed it by way of the umbilical site. I examined the surgical field. There was some bleeding from the gallbladder fossa that was easily controlled with the cautery. Again, indocyanine green visualization was also used with the examination, and I saw no evidence of any bile leak. I then removed the Endo Catch bag and the umbilical port site, and closed the umbilical fascia with interrupted Vicryl sutures using the Deny Hein wound closure device. I then removed the remaining 5 mm ports under the vision of the laparoscope. Sites were irrigated, and the skin was closed with subcuticular stitches. Bandages were applied, patient was awakened from anesthesia, and transferred to the recovery unit. Date of Procedure: 12/23/24
--- NOTE | 2024-12-22 19:16 | W.ANESPRE ---
General Info Date of Service Date Performed: 12/23/24 Height: 6 ft 1 in Weight: 95.368 kg Body Mass Index (BMI): 27.7 Surgical Procedure: Operation Date: 12/23/24 07:55 Proposed Procedure Side Surgeon p Cholecystectomy Laparoscopic Rickie Sanford MD Meds Allergies and Home Medications Allergies Allergy/AdvReac Type Severity Reaction Status Date / Time amoxicillin Allergy Intermediate Hives Verified 12/22/24 10:18 Home Medication ?Medication ?Instructions ?Recorded omeprazole 20 mg capsule,delayed 20 mg PO DAILY 12/16/15 release ibuprofen 600 mg tablet 600 mg PO Q6H PRN Pain #15 tabs 03/28/17 trazodone 100 mg tablet 100 mg PO HS 03/28/17 clonidine HCl 0.1 mg tablet 0.1 mg PO TID 09/02/24 alprazolam 2 mg tablet 2 mg PO TID 11/24/24 furosemide 20 mg tablet (Lasix) 20 mg PO DAILY 11/24/24 methylphenidate HCl 20 mg tablet 20 mg PO TID 11/24/24 buprenorphine 7.5 mcg/hour weekly 1 patch transdermal .weekly 12/22/24 transdermal patch (Butrans) Current Visit Medications: Current Medications Generic Name Dose Route Start Last Admin Trade Name Freq PRN Reason Stop Dose Admin Acetaminophen 1,000 mg 12/23/24 06:00 Acetaminophen 500 Mg Tab PO 12/23/24 23:59 PREOP SUKHI Celecoxib 200 mg 12/23/24 06:00 Celecoxib 200 Mg Cap PO 12/23/24 23:59 PREOP SUKHI Gabapentin 600 mg 12/23/24 06:00 Gabapentin 300 Mg Cap PO 12/23/24 23:59 PREOP SUKHI Hydromorphone HCl 0.2 mg 12/22/24 14:00 Hydromorphone 2 Mg/Ml Syr IVP 01/21/25 13:59 Q1H PRN PRN Ringer's Solution 1,000 mls @ 80 mls/hr 12/23/24 06:00 IV 12/23/24 23:59 INFUSION SUKHI Cefazolin Sodium/Dextrose 2 gm in 50 mls @ 100 mls/hr 12/23/24 06:00 Ancef Duplex IVPB 12/23/24 23:59 PREOP SUKHI IV Miscellaneous Supplies 1 each 12/23/24 06:00 Iv Access IV 12/23/24 23:59 DIRECTED SUKHI Indocyanine Green 5 mg 12/23/24 06:00 Indocyanine Green 25 Mg Vial IVP 12/23/24 23:59 PREOP SUKHI Sodium Chloride 0 ml 12/23/24 06:00 Normal Saline Flush 10 Ml Syr IV 12/23/24 23:59 PRN PRN Sodium Chloride 0 ml 12/23/24 06:00 Normal Saline 10 Ml Vial IJ 12/23/24 23:59 DIRECTED PRN Sterile Water 0 ml 12/23/24 06:00 Water,Injection,Sterile 10 Ml Vial IJ 12/23/24 23:59 DIRECTED PRN Tramadol HCl 50 mg 12/22/24 14:00 Tramadol 50 Mg Tab PO 01/21/25 13:59 Q6H PRN PRN Pain PFSH Active Problems Active Problems: Problem Status Onset Code Biliary colic Acute K80.50 Cellulitis of left leg Acute L03.116 Medical History Medical History Ex-smoker ADHD Chronic anxiety Chronic insomnia GERD (gastroesophageal reflux disease) Chronic pain PTSD (post-traumatic stress disorder) Sarcoidosis Surgical History Surgical History (Updated 12/23/24 @ 08:11 by Blanquita Castrejon) [place] teeth extracted Tobacco Smoking/Tobacco Use Status: Former Tobacco Use Passive smoking exposure: No Alcohol Alcohol Intake: current Alcohol intake frequency: a few times a month Alcohol type: beer Substance Use Substance use: Never Substance use type: does not use Vital Signs and Lab Results Vital Signs Most Recent Vital Signs in EMR: Temp Pulse Resp BP Pulse Ox 36.4 C L 88 20 112/80 94 12/23/24 07:30 12/23/24 07:30 12/23/24 07:30 12/23/24 07:30 12/23/24 07:30 Lab Results Complete Blood Count: WBC, (4.4-10.8) 6.79 10^3/uL 12/12/24, 09:20 RBC, (4.36-5.78) 4.22 10^6/uL L 12/12/24, 09:20 Hgb, (13.5-17.5) 12.8 g/dL L 12/12/24, 09:20 Hct, (40.0-50.0) 37.1 % L 12/12/24, 09:20 Plt Count, (130-400) 248 10^3/uL 12/12/24, 09:20 Complete Metabolic Panel: Sodium, (136-145) 141 mmol/L 12/12/24, 09:20 Potassium, (3.5-5.1) 4.2 mmol/L 12/12/24, 09:20 Chloride, (98-107) 105 mmol/L 12/12/24, 09:20 Carbon Dioxide, (21.0-32.0) 28.0 mmol/L 12/12/24, 09:20 BUN, (7-18) 17 mg/dL 12/12/24, 09:20 Creatinine, (0.70-1.30) 1.1 mg/dL 12/12/24, 09:20 Est GFR (CKD-EPI 2020), (mL/min/1.73m2) 86.49 12/12/24, 09:20 Calcium, (8.5-10.1) 8.7 mg/dL 12/12/24, 09:20 Glucose, (74-106) 91 mg/dL 12/12/24, 09:20 Hemoglobin A1c, (<5.7) 5.1 % 12/12/24, 09:20 Anesthesia Assessment and Plan Anesthesia History Personal History: No History of Anesthesia Complications Family History: No Family History of Anesthesia Complications Exercise Tolerance Exercise Tolerance: Metabolic Equivalents>4 Cardiac & Pulmonary Exam Cardiac Exam: Normal S1/S2 Heart Sounds Pulmonary Exam: Clear Bilateral Breath Sounds Implantable Cardiac Device Does patient have a Pacemaker or an ICD?: No Airway Exam Known Difficult Airway: No Mallampati Class: 4 Mouth Opening: Narrow (< 3cm) Thyromental Distance: Less than 3 cm Neck Range of Motion: Limited ROM Neck Circumference: Normal Teeth Condition: Edentulous ASA Classification ASA Score: ASA 2 Emergency Case?: No NPO Status NPO Status: NPO Clears >2 hours, Solids >8 hours Anesthesia Plan Resuscitation Status: Full Code Anesthesia Technique: General Anesthesia Airway Planned: Endotracheal Tube Monitors Used: Standard Monitors Preoperative Comments:: 39 yo for lap aubrey. Sig PMHx: RAD (breathing feels good today), GERD (omeprazole, poorly controlled), sarcoidosis, PTSD, chronic pain (Butrans - states took patch off yesterday), ADHD, anxiety. ECG (at PCP): sinus Alejandro During interview he was actively falling asleep. Denies drug use/abuse. States that he has insomnia and is very tired. Did have his alprazolam this AM.
[2024-12-23] VITALS (53 sets, daily range): BP systolic 100–131; BP diastolic 58–80; PULSE 62–93; RESP 6–22; TEMP 36–36.8; O2SAT 87–99; BMI 27.7
[2024-12-23] MEDS: Gabapentin 300 MG CAP 600 MG PO (08:16)
[2024-12-23] MEDS: Acetaminophen 500 MG TAB 1000 MG PO (08:17)
[2024-12-23] MEDS: Celecoxib 200 MG CAP PO (08:17)
[2024-12-23] MEDS: Lactated Ringers 1,000 ML 80 ML IV (08:25)
[2024-12-23] MEDS: Indocyanine green 25 MG VIAL 5 MG IVP (08:27)
[2024-12-23] MEDS: Normal Saline Flush 10 ML SYR IV (08:27)
[2024-12-23] MEDS: ceFAZolin 2 GM/50 ML BAG IVPB (08:35)
[2024-12-23] MEDS: Bupivacaine 0.25% Pres-Free W/EPI 30 ML VIAL (09:07)
--- NOTE | 2024-12-23 10:30 | GB_PTH ---
PATIENT: Cliff Romero JR LOC: [facility] U#:[id number] AGE/SX: 39/M ROOM: RE12/23/[address]: Rickie Sanford MD : [id number] BED: DIS: 12/23/2024 SPEC #: [id number] RECD: 12/23/24 12:05 STATUS: DOROTEO REZully #: [id number] NATASHA: 12/23/24 10:[address]: Rickie Sanford DEPT: Surgical Specimen RECD BY: Irene East Tissues: 1 - GALLBLADDER Procedures: GROSS AND MICRO LEVEL 3 Comments: [id number]
--- NOTE | 2024-12-23 12:38 | W.ANESPOSTOP ---
Postoperative Evaluation Date, Time and Location Date Performed: 12/23/24 Time Performed: 12:38 Patient Location: PACU Vital Signs Most Recent Imported Vital Signs: Most Recent Vital Signs Temp Pulse Resp BP Pulse Ox 36.0 C L 62 13 100/61 95 12/23/24 12:26 12/23/24 12:26 12/23/24 12:26 12/23/24 12:26 12/23/24 12:26 Pain Score Most Recent Pain Score: Most Recent Pain Score Pain Level 0 12/23/24 12:26 Assessment Mental Status: Awake (Alert & Oriented to Patient Baseline) Airway and Respiratory Function: Patent airway with normal (patient baseline) respiratory exam Cardiovascular Function: Hemodynamically Stable Hydration Status: Adequately Hydrated Nausea & Vomiting: No Nausea or Vomiting Pain: Pain is tolerable per patient Peripheral Nerve Block: Patient did not receive a nerve block
== END 2024-12-23 14:00 | disposition home or self-care (01) ==
LOC: SUR 07:34
PROVIDERS: PCP Family Medicine; Visit Provider Surgery
PROC: 0FT44ZZ Resection of Gallbladder, Percutaneous Endoscopic Approach (ICD-10-PCS; CPT 47562; principal; 2024-12-23 07:45)
DX: K80.50 Calculus of bile duct without cholangitis or cholecystitis without obstruction (principal)
CPT/HCPCS: 47562; 88304; J0690; J1100; J2405; J2704; J3475